=== PATIENT | female | born 1935 | race Caucasian/White ===

== ENCOUNTER 2016-07-20 14:35 | Inpatient (IN) | payer MEDICARE, BC ==
[~2016-07-20] VITALS: Ht 167.6 cm; Wt 111.7 kg
--- NOTE | ~2016-07-20 | ESTC ---
Cardiac Perfusion Imaging Demographics Patient Name OVI Ruvalcaba Gender Female Patient Number [id number] Race Visit Number [id number] [place] [id number] Room Number G6332 Accession Number [id number] Height 66 inches Date of 1935 Weight 236 pounds A Interpreting Manfred De La Rosa Date of study 07/23/2016 Physician MD Supervising /MLP Sigrid BAUMANN Technologist Asher Hyman MD Ordering Physician Stress Cristina Vides architecture technician RDCS, RVT Stress ECG Reading Sigrid Castro Nurse Saul Pompa Physician A air cargo specialist Procedure Type: Nuclear Stress Test:Cardiolite Stress Test Procedure Start time: 07/23/2016 07:32 Indications: Chest pain. Risk Factors The patient risk factors include:obesity, hypercholesterolemia, treated hypertension, family history of premature CAD, insulin treated diabetes mellitus and prior heart failure . Conclusions Summary Perfusion Images: The overall quality of the study is good. Left ventricular cavity is noted to be normal on the stress and normal on the rest images. There is no evidence of abnormal lung activity. The right ventricle is not visualized an cannot be assessed. Impression ECG portion of lexiscan stress test is clinically negative for ischemia by diagnostic criteria. Myocardial perfusion imaging is normal. Apical thinning noted, normal variant. Overall left ventricular systolic function was normal without regional wall motion abnormalities. Calculated LVEF is 71% and TID ratio is 1.2. Stress Protocols Resting ECG RBBB LAHB Interm Weckenbach Resting BP:158/58 mmHg Pre-stress physical exam: Patient assessed by Dr Matta prior to testing. Stress Protocol:Pharmacologic - Lexiscan Peak BP:169/68 mmHg Predicted HR: 142 bpm ECG Findings No ECG changes suggestive of ischemia. Arrhythmias No rhythm abnormality. Symptoms Nausea. Shortness of breath. Stress Interpretation Appropriate hemodynamic response to Lexiscan. No significant ST-T wave changes with Lexiscan. ECG portion is negative for ischemia by diagnostic criteria. Imaging Results Summed scores - Summed stress score: 11 - Summed rest score: 11 - Summed difference score: 0 Stress ejection Ejection fraction:72 % EDV :81 ml ESV :23 ml Stroke volume :58 ml LV mass :114 gr Imaging Protocols Rest Stress Isotope:Tc99m Sestamibi IV Isotope: Tc99m Sestamibi IV Isotope dose:14.2 mCi Isotope dose:44 mCi Date:07/23/2016 07:57 Date:07/23/2016 09:26 Technique: SPECT Technique: Gated Supine SPECT Supine Scan Time:30 minutes post injection Scan Time:45-60 minutes post injection Procedure Medications - Regadenoson (Lexiscan) 0.4 mg IV over 10-15 sec. I.V. 0.4 mg. Medical History Admission Data Admission date: 07/20/2016 Admission Time: 14:35 Hospital Status: Inpatient. Signatures dtt: Cherelle Matta dtd: 07/23/16 0732 Physician Self Edit
--- NOTE | ~2016-07-20 | HP ---
PATIENT'S NAME: CHARO DIOR [facility] AGE: 80 Y [address] ROOM: [address] [place], [place] [address] LOCATION: [facility] ADMIT DATE: 07/20/2016 History & Physical DISCHARGE DATE: FAMILY PHYSICIAN: Kb Littlejohn MD ATTENDING PHYSICIAN: SENA JOHNSON DATE OF SERVICE: CHIEF COMPLAINT: Syncope. HISTORY OF PRESENT ILLNESS: This is a 80-year-old female with history of coronary artery disease, status post multiple stents, last stent placed about 3 years ago; history of type 2 diabetes; previous workup for syncope; also has an ICD placed 3 years ago. The patient today presents from her primary care physician's office for evaluation of syncope. The patient's states that the patient woke up this morning at her usual time and he assisted her to go use the bathroom and while he was waiting for her in the other room for her to finish, she took a little longer than usual and he went back to check on her to find her slouched on the toilet seat leaning against the side of the wall. The patient was unresponsive to him when he tried to interact with her and at that time, tried to help her back into bed, and took next few hours resting in bed. However, few hours later, the patient complained to her that she was having continued palpitations, dizziness, at that point, he decided to bring her for evaluation at her primary care physician. The patient of note has a history of multiple syncopal episodes and extensive workup about 3 years ago, but according to her , she has actually done well in regard to that over the past 2-3 years. Of note, the patient had been on Namenda and Aricept for dementia and did have some orthostatic-type symptoms, and the medicine had to be discontinued as of February 2016. The patient during my evaluation awake, alert, oriented, and resting comfortably. Denies any dizziness, lightheadedness, chest pain, or shortness of breath. The patient also describes having a fall about 3 days ago while attempting to go and get into sleep in the morning, but also explains that she does notice herself having a sensation of passing out for the actual episode actually happens. The patient is noted to have attempted to break her fall as she has scratch hampton on her hands. PAST MEDICAL HISTORY: 1. Coronary artery disease, status post multiple stents. 2. History of recurrent syncope. 3. Status post ICD placement about 3 years ago. 4. Type 2 diabetes. PATIENT'S NAME: CHARO DIOR [facility] AGE: 80 Y [address] ROOM: [address] [place] [address] LOCATION: [facility]PCU ADMIT DATE: 07/20/2016 History & Physical DISCHARGE DATE: FAMILY PHYSICIAN: Kb Littlejohn MD ATTENDING PHYSICIAN: SENA JOHNSON FAMILY HISTORY: The patient has a history of coronary artery disease and hypertension in both her parents. SOCIAL HISTORY: The patient lives in [place] with her . No history of alcohol, tobacco, or drug use. REVIEW OF SYSTEMS: 10-point review of systems was conducted and were all negative except as mentioned in the HPI. PHYSICAL EXAMINATION: VITAL SIGNS: Blood pressure 143/73, heart rate 57, respiratory rate 16, and saturating 98% on room air. GENERAL: The patient is awake, alert, and oriented x3, in no apparent distress. HEENT: The patient has moist mucous membranes. No scleral icterus or conjunctival pallor noted. SKIN: Without rash or lesions noted. HEART: S1, S2, regular rate and rhythm. CHEST: Clear to auscultation bilaterally. ABDOMEN: Soft, nontender, and nondistended with positive bowel sounds. MUSCULOSKELETAL: No joint pain or muscle tenderness noted. NEURO: Grossly nonfocal. ASSESSMENT AND PLAN: 1. Syncope. Rule out cardiac etiology. The patient has an extensive history of coronary artery disease. We will go ahead and do a full cardiac workup and get 12-lead EKG and monitor on tele for rhythm abnormalities. The patient does have an ICD placed and we will interrogate that as well. The patient is known to [facility] and we will invite them for consult and evaluation. 2. Coronary artery disease, status post multiple stents. Last stent about 3 years ago. We will continue the patient's cardiac medications. 3. Type 2 diabetes. We will treat the patient with Levemir 25 units nightly and adjust the dosage as needed on top of the sliding scale insulin. The patient's last A1c per was 7.5. We will recheck that value again. 4. Hypertension. We will check for orthostatic hypotension. The patient is normotensive right now. 5. Deep venous thrombosis prophylaxis. We will use subcutaneous heparin. PATIENT'S NAME: CHARO DIOR [facility] AGE: 80 Y [address] ROOM: [id number] [place] [address] LOCATION: [facility] ADMIT DATE: 07/20/2016 History & Physical DISCHARGE DATE: FAMILY PHYSICIAN: Kb Littlejohn MD ATTENDING PHYSICIAN: SENA JOHNSON MD ALECIA GALLAGHER/modl /[id number] D: [id number] T: [id number] HISTORY & PHYSICAL
--- NOTE | ~2016-07-20 | DS ---
PATIENT'S NAME: CHARO THORNTON [facility] AGE: 80 Y [address] ROOM: [facility] [place], [place] [address] LOCATION: GPCU ADMIT DATE: 07/20/2016 Discharge Summary DISCHARGE DATE: 07/23/2016 FAMILY PHYSICIAN: Kb Littlejohn MD ATTENDING PHYSICIAN: Santosh Taylor PRINCIPAL DISCHARGE DIAGNOSES: Syncope, presumed cardiac etiologies, possibly vasovagal. SECONDARY DIAGNOSES: 1. Hypertrophic obstructive cardiomyopathy. 2. Coronary artery disease with history of coronary artery bypass grafting, multiple percutaneous interventions. 3. Hypertension. 4. Chronic kidney disease, stage III. 5. Diabetes mellitus, type 2 with severe hyperglycemia. 6. Wenckebach rhythm. 7. Morbid obesity. 8. Elevated TSH at 4.92 with a normal T4 at 1.0. 9. Chronic constipation. CONSULTATIONS: Dr. Matthew Matta on 07/21/2016 PROCEDURE: Maria on 07/23/2016. The full report is pending at the time of my discharge summary. Echocardiogram. BRIEF HISTORY: Ms. Thornton is a very norma pleasant 80-year-old female who experienced a syncopal episode while toileting at home. assisted her back to her bed and it took her about 30 minutes to recover. She had some diaphoresis, ringing in her ears. Blood glucose was 202. She did not have any chest pain or dyspnea or any tonic-clonic movements associated with seizure. She had a low blood pressure of 78. She had some recent falls as well. She was seen at Dr. Wen's office and advised to proceed to the ER where she was evaluated and she was admitted for further evaluation and management. Interrogation of her pacer/ICD unit, there was no significant ectopy noted. Echocardiogram, I will give you a brief summary of the results: Estimated left ventricular ejection fraction is 75% [id number] concentric left ventricular hypertrophy, [id number] mitral annular calcification and mild mitral valve stenosis with the mean gradient 1.645. The patient reports to me that she only has a bowel movement about once a week, but more if she uses some multiple laxatives that are on her medication list. She has had no further episodes of near syncope, lightheadedness, and PATIENT'S NAME: CHARO THORNTON [facility] AGE: 80 Y [address] ROOM: [address]32 [place] [address] LOCATION: GPCU ADMIT DATE: 07/20/2016 Discharge Summary DISCHARGE DATE: 07/23/2016 FAMILY PHYSICIAN: Kb Littlejohn MD ATTENDING PHYSICIAN: Chon Taylortrent was found to have blood pressures which revealed she is not orthostatic on 07/21/2016. While she was here, she did have very high glucoses. One reason may be because we switched her to all insulins coverage. I have encouraged her. She was also found to have high triglycerides. I reviewed dietary information with her and reinforced the need for low-carb, low-fat diet with her, when her was present and she may benefit from referral to the in service educator as an outpatient with her . She has had some memory decline and is on Namenda for this. I have recommended review of the side effects with her PCP as she has not seen much benefit. The risks may outweigh the benefits of this medication, given her other multiple comorbidities. Her TSH was mildly elevated at 4.92 with a normal T4. I have not changed her thyroid replacement hormone. This may need further evaluation as well. Discharged the patient and her in their agreement with discharge at this time. INSTRUCTIONS AT DISCHARGE: 1. Diet: Low-carb diabetic diet with low fat, high in veggies. 2. Activity: Increase as tolerated. I am recommending home physical therapy for the assessment of home safety and hopefully help her to increase her exercise intolerance and prevent further falls. 3. Follow up: With Dr. Littlejohn, her PCP in less than a week. Cardiology as previously planned. MEDICATIONS AT THE TIME OF DISCHARGE: 1. Vitamin D 5000 units three times a week. 2. Namenda 10 mg p.o. b.i.d. 3. Aspirin 81 mg p.o. daily. 4. Cymbalta 60 mg at bedtime. 5. Neurontin 400 mg b.i.d., 600 mg at bedtime. 6. NovoLog flex pen 40 units subcu daily and then 45 units b.i.d. 7. Toujeo SoloSTAR 114 units subcu at bedtime. 8. Levothyroxine 125 mcg daily. 9. Mesalamine capsules 400 mg daily. 10. The dose of metoprolol has been changed to 12.5 mg p.o. daily. 11. I have added fish oils 1000 mg caps twice a day. 12. Prilosec 20 mg daily. 13. Ranexa 1000 mg p.o. b.i.d. 14. Rosuvastatin dose has been increased to 40 mg daily because of her high triglycerides. 15. MiraLAX p.r.n. PATIENT'S NAME: CHARO THORNTON [facility] AGE: 80 Y [address] ROOM: [id number] [place] [address] LOCATION: GPCU ADMIT DATE: 07/20/2016 Discharge Summary DISCHARGE DATE: 07/23/2016 FAMILY PHYSICIAN: Kb Littlejohn MD ATTENDING PHYSICIAN: Santosh Taylor 16. Tylenol p.r.n. preparation h p.r.n. 17. Krill oil 500 mg daily. 18. Senna p.o. daily and at bedtime. 19. Brilinta 60 mg b.i.d. 20. Nystatin topical to skin rash. 21. Victoza 1.8 mg subcu at bedtime. 22. Nystatin cream for vaginitis. 23. Diclofenac gel p.r.n. 24. [place] 5/325 p.r.n. 25. Temovate topically b.i.d. p.r.n. I have recommended she stop her vaginal estrogens for cardiovascular reasons, although she may not be able to do this. CONDITION AT DISCHARGE: Good. It is my opinion, this is most likely a vasovagal syncopal episode and she has been pleasant and asymptomatic the entire hospitalization. She is in good condition now. TIME SPENT: Greater than 30 minutes was spent in discharge preparations. Thanks very much for your assistance with this dictation. FESTUS SHEARER MD LM/joni /[id number] d: 07/24/16516 t: 07/24/16 1433, DISCHARGE SUMMARY
--- NOTE | ~2016-07-20 | ECHO ---
Transthoracic Echocardiography Report (TTE) Demographics Patient Name CHARO DIOR Date of Study 07/21/2016 M Patient Number [id number] Visit Number [id number] Date of 1935 Room Number G6332 Gender Female Number Age 80 year(s) Referring [facility] Manager Study Mary Hart, Physician Santosh RT,RVT,RDCS Physician Interpreting Sigrid Castro Refrigeration Engineer Physician A MD Supervising Ordering [facility] Santosh MD/MLP Physician Nurse Stress Tank Cleaning Supervisor Conclusions Contractility Score Summary Normal Left Ventricular contractility was noted. Summary The estimated left ventricular ejection fraction is > 75%. Moderate to severe concentric left ventricular hypertrophy. Normal right atrial size. Device lead seen in the right atrium. Moderate to severe mitral annular calcification. Mild mitral valve stenosis. The mean gradient is 1.64 mmHg. Trivial tricuspid regurgitation by color Doppler. Procedure Type of Study TTE procedure:2D Echocardiogram, M-Mode, Doppler , Color Doppler. Procedure Date Date: 07/21/2016 Start: 07:16 AM Study Location: Inpatient Portable Technical Quality: Adequate visualization Indications:Syncope. Additional Indications:hypotension Appropriate Use Criteria: 9 Patient Status: Routine HR: 65 bpm BP: 152/66 mmHg Allergies - No known allergies. M-Mode/2D Measurements LV Diastolic Dimension: 2.64 cm LV Systolic Dimension: 0.92 cm LV Septum Diastolic: 2.13 cm LV Septum Systolic: 2.35 cm LV PW Diastolic: 2.09 cm LV PW Systolic: 2.6 cm Cardiac Output: 4.82 l/min AO Root Dimension: 3.1 cm LA Dimension: 3.8 cm EF Estimated: 80 % MV EPSS: 0.4 cm LVOT: 2 cm LVOT VTI: 23.6 cm LV Stroke volume: 74.1 ml Doppler Measurements MV Peak E-Wave: 1.2 m/s LVOT Peak Velocity: 1.21 m/s MV Peak A-Wave: 1.65 m/s MV E/A Ratio: 0.73 MV P1/2t: 135 msec E' Septal Velocity: 0.03 m/s MV E/E' Ratio: 21.9 PV Peak Velocity: 1.02 m/s PV Peak Gradient: 4.16 mmHg A' Septal Velocity: 0.08 m/s A' Lateral Velocity: 0.08 m/s Findings Left Ventricle Moderate to severe concentric left ventricular hypertrophy. Diastolic assessment reveals Grade I diastolic dysfunction . Right Ventricle Normal right ventricle structure and function. Left Atrium Normal left atrial size. Right Atrium Normal right atrial size. Device lead seen in the right atrium. Mitral Valve Moderate to severe mitral annular calcification. Mild mitral valve stenosis. The mean gradient is 1.64 mmHg. Aortic Valve Normal aortic valve structure and function. Tricuspid Valve Trivial tricuspid regurgitation by color Doppler. Pulmonic Valve Normal pulmonic valve structure and function. Pericardial Effusion No evidence of pericardial effusion. Miscellaneous Visualized portions of the aortic root and ascending aorta appear normal in size. Pleural Effusion No evidence of pleural effusion. Contractility Score LV regional wall motion:(0-Non visualized 1-Normal 2-Hypokinesis 3-Akinesis 4-Dyskinesis 5-Aneurysm) Signature dtt: Cherelle Matta dtd: 07/21/16 0716 Physician Self Edit
--- NOTE | ~2016-07-20 | CON ---
PATIENT'S NAME: CHARO DIOR [facility] AGE: 80 Y [address] ROOM: [place] [address] LOCATION: GPCU ADMIT DATE: 07/20/2016 Consultation DISCHARGE DATE: FAMILY PHYSICIAN: Kb Littlejohn MD ATTENDING PHYSICIAN: SENA JOHNSON DATE OF CONSULTATION: 07/21/2016 REFERRING PHYSICIAN: Cherelle Matta MD CARDIOLOGY CONSULTATION REASON FOR CARDIOLOGY CONSULTATION: Syncope. HISTORY OF PRESENT ILLNESS: This is a 80-year-old female, who experienced a syncopal episode while on the toilet in her home. Her subsequently had to help her, get off the toilet and states it took about 30 minutes for her to fully recover from her episode. During that time, she was diaphoretic but not having seizures. She also admitted to having some ringing in her ears during the episode. Blood glucose evaluation showed 202, and she denied chest pain, or dyspnea. Of note, though her blood pressure systolically was 78. She also admits to having recent falls over the past three days in her home and had scraped her knee as well as a small hand laceration. After her most recent syncopal episode, she presented to Dr. Wen's office for evaluation and due to the hypotension, plan was made to admit her to [facility] for further treatment and this consult was subsequently requested due to the syncopal episode and her extensive cardiac history including coronary artery bypass grafting, multiple stents, and an ICD implantation in 2013. PAST MEDICAL HISTORY: 1. Coronary artery disease. 2. Diastolic congestive heart failure. 3. Hypertrophic cardiomyopathy. 4. Permanent atrial fibrillation. 5. Hypertension. 6. Dyslipidemia. 7. Diabetes mellitus. 8. GERD. 9. Hypothyroidism. 10. Obstructive sleep apnea. 11. Spinal stenosis. PAST SURGICAL HISTORY: 1. Coronary artery bypass grafting in 2004. PATIENT'S NAME: CHARO DIOR [facility] AGE: 80 Y [address] ROOM: [place] [address] LOCATION: GPCU ADMIT DATE: 07/20/2016 Consultation DISCHARGE DATE: FAMILY PHYSICIAN: Kb Littlejohn MD ATTENDING PHYSICIAN: SENA JOHNSON 2. Single-chamber Bi-V ICD implantation in 2013 due to the permanent atrial fibrillation and hypertrophic cardiomyopathy. 3. Coronary artery stenting with the most recent one being to the proximal LAD in 2013. She also received a stent to her RCA in 2012, and a stent to her saphenous vein graft to the diagonal in 2011, stent to the mid LAD in 2008, and a stent to the mid RCA in 2008. 4. Shoulder surgery. 5. Back surgery. 6. Hysterectomy. 7. Left cataract surgery. 8. Appendectomy. FAMILY HISTORY: The patient's father had a history of heart disease and her mother had a history of diabetes mellitus and cancer of the lung and heart. She has a brother with a history of diabetes and heart disease. SOCIAL HISTORY: The patient denies ever using tobacco. She also denies alcohol or illicit drug use. CURRENT MEDICATIONS: 1. Aspirin 81 mg p.o. daily. 2. Crestor 20 mg p.o. daily. 3. Cymbalta 60 mg p.o. daily in the evening. 4. Delzicol 400 mg p.o. daily at noon. 5. Levothyroxine 125 mcg p.o. daily. 6. Neurontin 400 mg p.o. twice daily at 9:00 a.m. and 6:00 p.m. 7. Neurontin 600 mg p.o. daily at bedtime. 8. Protonix 40 mg p.o. daily. 9. Ranexa ER 1000 mg p.o. twice daily. 10. Toprol-XL 12.5 mg p.o. daily. 11. Heparin 5000 units subcutaneous 3 times daily. 12. Levemir 30 units subcutaneous daily in the evening. 13. NovoLog subcutaneous on a mild sliding scale per a.c. and at bedtime Accu-Cheks. MEDICATION ALLERGIES: No known medication allergies. REVIEW OF SYSTEMS: Pertinent positive review of systems are noted in the HPI. All other review of systems evaluated and negative. PHYSICAL EXAMINATION: PATIENT'S NAME: CHARO DIOR [facility] AGE: 80 Y [address] ROOM: [address] [place] [address] [facility] AD[facility] DATE: 07/20/2016 Consultation DISCHARGE DATE: FAMILY PHYSICIAN: Kb Littlejohn MD ATTENDING PHYSICIAN: SENA JOHNSON VITAL SIGNS: Temperature 97.9, pulse 79, respirations 18, blood pressure 156/68, and O2 saturation 96% on room air. The patient weighs 109.6 kg. SKIN: [place], warm, and dry. EYES: Sclerae clear. No xanthelasmas. ENT: Oral mucosa is pink and moist. No jugular venous distention or carotid bruits. CHEST: Respirations are even and unlabored. Lung sounds are diminished to bilateral bases. HEART: Regular rate and rhythm. Normal S1 and S2. No murmurs, rubs, or gallops. Does have the presence of an S4. ABDOMEN: Obese, but soft and tender. MUSCULOSKELETAL: Equal muscle strength to upper and lower extremities bilaterally against resistance. EXTREMITIES: Peripheral pulses palpable. No clubbing or cyanosis noted. Does have mild edema noted. PSYCHIATRIC: Alert and oriented. Mood and affect are appropriate. IMPRESSION AND PLAN: Per Dr. Matta: 1. Coronary artery disease. 2. Syncope. 3. Hypertension. 4. Diabetes mellitus, type 2. 5. Chronic kidney disease, stage 3. 6. Obesity. Possible vasovagal syncope. Less likely to be arrhythmic, but we will interrogate her ICD for full evaluation of device and recent arrhythmias. We will check some laboratory evaluation with a proBNP, D-dimer, lipids, TSH, and a free T4. We will also get a carotid ultrasound and plan to proceed with a Lexiscan stress test on 07/23/2016 to fully evaluate for myocardial perfusion imaging. There is also question of a possible transient ischemic attack, but we are unable to perform an MRI due to her ICD device. We will continue to monitor, evaluate, and treat as appropriate. Thank you for this consult. Thank you for allowing [facility] to interact in the care of this patient. ZACHARY MCKENNA-MD JOSEPH LAM/joni PATIENT'S NAME: CHARO DIOR [facility] AGE: 80 Y [address] ROOM: [address] [place], [place] [address] LOCATION: [facility] ADMIT DATE: 07/20/2016 Consultation DISCHARGE DATE: FAMILY PHYSICIAN: Kb Littlejohn MD ATTENDING PHYSICIAN: SENA JOHNSON /[id number] d: 07/22/16 1537 t: 07/27/16 1431, CONSULTATION REPORT
[~2016-07-20 14:35] MED LIST: ANUSOL HC 25 M1 SUPP R; ARICEPT10 M1 PO; ASACOL HD800 MG; ASACOL HD800 MG PO; ASPIR 8181 MG PO; ASPIRIN (CHILDR81 MG PO; ASPIRIN LO-DOSE81 MG PO; AZITHROMYCIN500 MG PO; BISACODYL10 MG R; BRILINTA60 MG PO; BRILINTA90 MG PO; CANAGLIFLOZIN; CIPRO500 MG PO; CRESTOR40 MG PO; CYMBALTA60 MG PO; DELZICOL400 M1 PO; DELZICOL400 MG PO; DULCOLAX10 MG R; FIBERCON625 MG; FIBERCON625 MG PO; FISH OIL1000 MG PO; FLEET ENEMA133 ML R; FLEET133 ML R; FLORASTOR250 MG PO; GLUCAGON/GLUCAGE1 MG SUB-Q; GLUCOPHAGE500 MG PO; GLUCOSE4 GM PO; HUMALOG100 UNIT/1 SUB-Q; HUMALOG100 UNIT/3 SUB-Q; INVOKANA100 MG PO; KEPPRA750 MG PO; KRILL OIL500 MG PO; LANTUS100 UNIT/1; LANTUS100 UNIT/1 SUB-Q; LEVEMIR100 UNIT/1 SUB-Q; LEVOTHROID (S100 MCG PO; LEVOTHROID (S125 MCG PO; LIDOCAINE IDER; LOPRESSOR50 M1 PO; LOVENOX40 MG/0.4 SUB-Q; MILK OF MA400 MG/5 M PO; MIRALAX17 GM PO; MYCOSTATIN CREA30 GM TOP; NAMENDA10 MG PO; NAMENDA5 MG PO; NEURONTIN400 MG PO; NEURONTIN600 MG PO; NORCO 5-325 TA1 EACH PO; NORPACE CR150 MG PO; NOVOLOG FL100 UNIT/1 SUB-Q; NOVOLOG SUB-Q; NOVOLOG100 UNIT/M SUB-Q; NYSTATIN1 EAC1 TOP; OMEGA 3 1,0001 EACH PO; OMEGA 3 PO; OMEGA-3; OMEGA-31000 MG PO; PANTOPRAZOLE SO40 MG PO; PREMARIN0.3 MG PO; PREPARATION H O57 GM R; PREPARATION H26 GM TOP; PRILOSEC20 M1 PO; PRILOSEC20 MG; PRILOSEC20 MG PO; RANEXA1000 MG PO; SENEXON-S TABL1 EACH PO; SENNA PO; SENNA-S TABLET1 EACH PO; SENNA8.6 MG PO; TOPROL XL25 MG PO; TOPROL XL50 MG PO; TOUJEO SOL300 UNIT/1 SUB-Q; TYLENOL ARTHRI650 MG PO; TYLENOL325 MG PO; VICTOZA 2-0.6 MG/0.1 SUB-Q; VICTOZA 3-0.6 MG/0.1 SUB-Q; VICTOZA SUB-Q; VITAMIN D5000 UNIT; VITAMIN D5000 UNIT PO; VOLTAREN 1% GE100 GM TOP
[2016-07-20] MEDS ORDERED: TEMOVATE60 GM TOP (15:36)
[2016-07-20] MEDS ORDERED: PREMARIN VAG30 GM TOP (15:37)
--- NOTE | 2016-07-20 16:55 | NUR ---
1500 PT ADMITTED TO [address] MAZA. AT TIME OF ADMIT PT IS ALERT, ALITTLE FORGETFUL AND LOOKS TO FOR ALOT OF HER DATA BASE ANSWERS. 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 PT COMES UP IN A WHEEL CHAIR FROM ADMISSIONS, AND SAYS SHE USES A WALKER AT HOME OR FOR LONGER DISTANCES. AT HOME SHE USES THE FURNITURE TO GET AROUND. LUNGS ARE CLEAR AND DIMINISHED WITH CRACKLES IN THE BASES. ABDOMEN IS SOFT AND ROUND WITH HYPOACTIVE BOWEL SOUNDS. PULSES ARE PALPABLE SHE HAS NO EDEMA. SHE DENIES DIZZINESS OR LIGHTHEADEDNESS AT THIS TIME, AND SAYS SHE ONLY FELT LIKE THAT THIS AM WHEN SHE WAS AT HOME. SL IV 22 GA STARTED TO LT HAND. AT BEDSIDE. 1700 IN TO SEE PT. ORDERS RECIEVED
[2016-07-20 18:54] LABS: BASOPHIL % 0.3 %; EOSINOPHIL # 0.2 K/uL (0.0-0.5); EOSINOPHIL % 1.4 %; HEMATOCRIT 40.4 % (33.0-46.0); HEMOGLOBIN 13.3 g/dL (10.0-15.0); IMMATURE GRANULOCYTE # 0.1 K/uL (0.0-0.3); IMMATURE GRANULOCYTE % 0.5 %; LYMPHOCYTE % 18.1 %; MCH 31.8 pg (27.0-34.0); MCHC 32.9 gm/dL (32.0-36.5); MCV 96.7 fl (83.0-98.0); MONOCYTE # 0.9 K/uL (0.0-1.0); MONOCYTE % 8.6 %; NEUTROPHIL # (ANC) 7.7 K/uL (1.8-7.8); NEUTROPHIL % 71.1 %; NRBC % 0 /100WBC (0-0.00); PLATELET COUNT 237 K/uL (150-450); RBC 4.18 M/uL (3.50-5.50); RDW-CV 13.8 % (11.9-14.6); WBC 10.9 K/uL (4.0-11.0)
[2016-07-20 19:12] LABS: ALBUMIN 3.5 gm/dL (3.5-5.0); ANION GAP 10.4 (10.0-19.0); BLOOD UREA NITROGEN 23 mg/dL (6-24); CALCIUM 9.8 mg/dL (8.5-10.5); CHLORIDE 106 mMol/L (96-110); CO2 28 mMol/L (22-32); CREATININE 1.3 mg/dL (0.5-1.1); ESTIMATED GFR (MDRD EQUATION) 40; MAGNESIUM 2.1 mg/dL (1.3-2.6); PHOSPHORUS 2.5 mg/dL (2.5-4.9); POTASSIUM 4.4 mMol/L (3.7-5.1); SODIUM 140 mMol/L (135-145)
--- NOTE | 2016-07-21 04:19 | NUR ---
NEURO: A/O x 3. Often defers questions to , who is caregiver at home. Chronic n/t to fingers and toes. CARDIO: Tele. AICD. Need set of orthostatic BPs. RESP: Upper 90's on RA. GI/: Diabetic. Accuchekcs ACHS. At HS was 240. IV: left hand SL. ACTIVITY: 1 assist with gaitbelt to BSC. MD does not want patient walking to bathroom at thsi time. Unsteady. PAIN: No c/o pain this shift. PLAN: Continue to monitor. Discharge when appropriate.
--- NOTE | 2016-07-21 12:27 | NUR ---
Introduced self and care management services to patient. Lives in [place] with spouse. No family in room. Denies concerns about going home on discharge, says her spouse takes good care of her. Denies needs. Asked her if she would like [facility] to follow her again at home on discharge, like they did last time she was in and she said she didn't think it would be needed but would talk to her about it. Did put a face 2 face sheet on the chart in case physician decides to order it. Will follow and assist with dc planning as needs identified.
--- NOTE | 2016-07-21 17:07 | NUR ---
Significant Event: Patient A/O x3. VS stable, on RA. Patient up to chair this shift. 1 assist gaitbelt walker transfer. Up to bedside commode to void. Patient able to move well, but unsteady at times. Patient has chronic N/T to toes. Patient on ACHS accuchecks, with mild sliding scale insulin treated x3 this shift. PT/OT consult. Patient denies pain at this time. Patient pleasant and cooperative with cares. supportive at bedside. Follow up:
--- NOTE | 2016-07-22 04:38 | NUR ---
NEURO: A&O x3. Pleasant with cares. CARDIO: Tele. Cardio consult. Kendy scan on 07/23. RESP: Upper 90's on RA. GI/: No caffiene diet. No nausea. Voids per BSC. Accuchecks ACHS. Levemir. SKIN: WNL. ACTIVITY: 1 assist with gait belt and walker to BSC. PT/OT consults. PAIN: No c/o pain this shift. PLAN: Discharge when appropriate.
--- NOTE | 2016-07-22 14:50 | NUR ---
Significant Event: A/O X 3. AT BEDSIDE. DENIES PAIN. HR SR 60-70'S. PACEMAKER INTERAGATED BY [employer] TODAY. NO ARRHYTHMIAS NOTED. DENIES DIZZYNESS. UP IN CHAIR TODAY AND AMBULTED IN ROOM. AFEBRILE. SBP 140-150'S. ROOM AIR, SATS 96%. NO RESP. DISTRESS NOTED. Follow up: CONT. CAFFIENE FREE DIET FOR LEXISCAN IN A.M.
[2016-07-23 03:58] LABS: ALBUMIN 3.1 gm/dL (3.5-5.0); ANION GAP 12.7 (10.0-19.0); CALCIUM 9.6 mg/dL (8.5-10.5); CREATININE 1.1 mg/dL (0.5-1.1); PHOSPHORUS 2.8 mg/dL (2.5-4.9); POTASSIUM 4.7 mMol/L (3.7-5.1)
--- NOTE | 2016-07-23 05:09 | NUR ---
A/O. HR 60-70s. SBP 140-160s. AFEBRILE. ROOM AIR. DENIES DIZZYNESS/LIGHTHEADEDNESS. DENIES PAIN. 1A WALKER GAITBELT TO COMMODE. NPO SINCE MIDNIGHT FOR EDMOND SCAN THIS AM. WILL BRING 60MG TABLETS OF BRILINTA TODAY. 1 MODERATE FORMED BM.
[2016-07-23] MEDS ORDERED: FISH OIL 1,0001 EAC1 PO (16:38)
--- NOTE | 2016-07-23 18:35 | NUR ---
DISM. NOTE: 174: REVIEW OF HOME MEDS AND NEW MEDS WITH HANDOUT AND INSTRUCTED ON DOSAGE CHANGES WELL. PRESCRIPTION GIVEN FOR PHARMACY FOR MED CHANGES. DIET/ ACTIVITY FOLLOW UP APPT. PATIENT DIDN'T REALLY WANT PT TO COME TO HER HOME YET. WILL DISCUSS WITH HER PRIMARY CARE PHYSICIAN WHEN SHE SEE'S HIM AT FOLLOW UP APPT. PATIENT AND VOICED UNDERSTANDING.
[2016-08-03] MEDS ORDERED: NITROSTAT0.4 MG SL (13:18)
[2016-08-03] MEDS ORDERED: PREPARATION H C51 G1 TOP (13:23)
[2016-08-03] MEDS ORDERED: VAGIFEM10 MCG VAG (13:28)
== END 2016-07-23 17:45 | disposition disaster alternative care site (69) | DRG 312 ==
LOC: GPCU 14:35
PROVIDERS: ADMIT Internal Medicine
DX: R55 Syncope and collapse (principal); I42.1 Obstructive hypertrophic cardiomyopathy; F03.90 Unspecified dementia, unspecified severity, without behavioral disturbance, psychotic disturbance, mood disturbance, and anxiety; I50.32 Chronic diastolic (congestive) heart failure; E11.22 Type 2 diabetes mellitus with diabetic chronic kidney disease; E66.01 Morbid (severe) obesity due to excess calories; I25.10 Atherosclerotic heart disease of native coronary artery without angina pectoris; Z95.5 Presence of coronary angioplasty implant and graft; Z95.810 Presence of automatic (implantable) cardiac defibrillator; I48.2 Chronic atrial fibrillation; E78.5 Hyperlipidemia, unspecified; K21.9 Gastro-esophageal reflux disease without esophagitis; E03.9 Hypothyroidism, unspecified; G47.33 Obstructive sleep apnea (adult) (pediatric); Z79.82 Long term (current) use of aspirin; Z79.4 Long term (current) use of insulin; I12.9 Hypertensive chronic kidney disease with stage 1 through stage 4 chronic kidney disease, or unspecified chronic kidney disease; N18.3 Chronic kidney disease, stage 3 (moderate); Z68.38 Body mass index [BMI] 38.0-38.9, adult; Z23 Encounter for immunization; E11.65 Type 2 diabetes mellitus with hyperglycemia; K59.00 Constipation, unspecified; I44.1 Atrioventricular block, second degree
CPT/HCPCS: A9500; G0008; J1644; J2785; P9047

== ENCOUNTER → 2016-08-03 | Outpatient (CLI) | payer MEDICARE, BC ==
[~2016-08-03] MED LIST changes: +FISH OIL 1,0001 EAC1 PO; +NITROSTAT0.4 MG SL; +PREMARIN VAG30 GM TOP; +PREPARATION H C51 G1 TOP; +TEMOVATE60 GM TOP; +VAGIFEM10 MCG VAG
== END | disposition disaster alternative care site (69) ==
LOC: GNUT 07-28 09:59
DX: E11.8 Type 2 diabetes mellitus with unspecified complications (principal); Z71.3 Dietary counseling and surveillance

== ENCOUNTER 2016-08-04 08:05 | Day surgery (SDC) | payer MEDICARE, BC ==
[~2016-08-04] VITALS: Ht 167.6 cm; Wt 109.5 kg
--- NOTE | ~2016-08-04 | OR ---
PATIENT'S NAME: CHARO THORNTON [facility] AGE: 80 Y [address] ROOM: [place] [address] LOCATION: GPCU ADMIT DATE: 08/04/2016 OR/Procedure Report DISCHARGE DATE: FAMILY PHYSICIAN: Kb Littlejohn MD ATTENDING PHYSICIAN: Ovidio Salinas SURGEON: Ovidio Salinas DO SPECIAL EDUCATION INCLUSION TEACHER: DATE OF PROCEDURE: 08/04/2016 PREOPERATIVE DIAGNOSIS: Third-degree heart block. SECONDARY DIAGNOSIS: History of single-chamber implantable cardioverter- defibrillator. PROCEDURE PERFORMED: Placement of atrial lead and upgrade of implantable cardioverter-defibrillator to dual-chamber. BRIEF HISTORY: Mrs. Thornton is a 80-year-old white female with the above- noted diagnosis. She has been brought to the operative suite today after informed consent was obtained for upgrade of her device. DESCRIPTION OF PROCEDURE: Her previous incision was marked. The anterior chest wall was sterilely prepped and draped, and after appropriate IV sedation was achieved, 1% lidocaine was used to infiltrate the previous incision. The incision was opened, and electrocautery was used for hemostasis. The lead and generator were removed from the pocket. Further infiltration of 1% lidocaine was used for the infraclavicular space, and then the subclavian vein was accessed without difficulty and a guidewire placed under fluoroscopic guidance into the right atrium. Sheath and dilator assembly were then placed, and the atrial lead was placed. It was a [employer] Ingevity MRI lead, model 7741, serial #[id number], placed in the right atrial appendage, sensing P waves of 2.6 mV with a voltage threshold of 0.9 and a pacing impedance of 636 ohms. It was then connected to the new generator which was a [employer] Energen EL, model D142, serial #[id number]. The old generator was then disconnected from the ventricular lead, and the ventricular leads placed into the new generator. Appropriate sensing and pacing was noted. The patient was paced DDDR with a lower rate limit of 60 and maximum tracking limit of 120. The incision was closed in a layered fashion with 2-0 Vicryl and 4-0 Monocryl. Pressure dressing was applied. Fluoroscopy showed good lead and generator position. OVIDIO SALINAS DO PATIENT'S NAME: CHARO THORNTON [place] AGE: 80 Y [address] ROOM: [place] [address] [facility] AD[facility] DATE: 08/04/2016 OR/Procedure Report DISCHARGE DATE: FAMILY PHYSICIAN: Kb Littlejohn MD ATTENDING PHYSICIAN: Ovidio Salinas/tyeshal /[id number] CC: Kb Littlejohn MD d: 08/04/16 1340 t: 08/04/16 1411, OPERATIVE SUMMARY
[2016-08-04 09:36] LABS: PROTIME 9.9 SECONDS (9.6-11.1)
--- NOTE | 2016-08-04 12:30 | NUR ---
Patient brought to PCU from PACU by transport. Alert/oriented x 3, but forgetful, asks repetitive questions. Saline lock to left forearm. Sling to left arm. Dressing to left upper chest clean/dry/intact; ice pack to left chest. Denies pain. 1 assist with gait belt for ambulation to the bathroom, unsteady on feet. Initial vitals: BP 144/67, HR 61, R 16, T 97.4, O2 SATS 98% ON ROOM AIR. DUAL PACED.
--- NOTE | 2016-08-05 05:08 | NUR ---
Significant Event: pATIENT ALERT AND ORIENTED X 3. DENIES PAIN. DENIES SHORTNESS OF BREATH. PATIENT VERY MINDFULL OF PRECAUTIONS REQUIRED FOR PACER LINE REVISION. FOLLOWS DIRECTIONS WELL. PATIENT DENIED PAIN AND SHORTNESS OF BREATH. TOLERATED IV ABX WITHOUT ISSUE. Follow up: CONTINUE TO MONITOR PER POC
== END 2016-08-05 12:40 | disposition disaster alternative care site (69) ==
LOC: GPCU 08:05 → GSDC 08:05 → GPCU 11:06 → GSDC 13:00
PROVIDERS: Thoracic Surgery (Cardiothoracic Vascular Surgery)
PROC: 0JPT0PZ Removal of Cardiac Rhythm Related Device from Trunk Subcutaneous Tissue and Fascia, Open Approach (ICD-10-PCS; principal; 2016-08-04)
PROC: 0JH608Z Insertion of Defibrillator Generator into Chest Subcutaneous Tissue and Fascia, Open Approach (ICD-10-PCS; 2016-08-04)
DX: I44.2 Atrioventricular block, complete (principal); I25.810 Atherosclerosis of coronary artery bypass graft(s) without angina pectoris; I25.82 Chronic total occlusion of coronary artery; I48.91 Unspecified atrial fibrillation; I11.0 Hypertensive heart disease with heart failure; I50.9 Heart failure, unspecified; I42.2 Other hypertrophic cardiomyopathy; E11.9 Type 2 diabetes mellitus without complications; E78.5 Hyperlipidemia, unspecified; G47.33 Obstructive sleep apnea (adult) (pediatric); F32.9 Major depressive disorder, single episode, unspecified; M79.7 Fibromyalgia; K21.9 Gastro-esophageal reflux disease without esophagitis; E03.9 Hypothyroidism, unspecified; E66.9 Obesity, unspecified; Z68.37 Body mass index [BMI] 37.0-37.9, adult; Z79.891 Long term (current) use of opiate analgesic; Z79.82 Long term (current) use of aspirin; Z79.4 Long term (current) use of insulin; Z95.1 Presence of aortocoronary bypass graft; Z95.5 Presence of coronary angioplasty implant and graft
CPT/HCPCS: C1721; C1898; J0131; J0690; J2001; J2250; J7030; J7050

== ENCOUNTER 2016-10-31 13:41 | Observation (INO) | payer MEDICARE, BC ==
[~2016-10-31] VITALS: Ht 167.6 cm; Wt 110.5 kg
--- NOTE | ~2016-10-31 | NDGEN ---
PATIENT'S NAME: CHARO DIOR [facility] AGE: 81 Y [address] ROOM: [place] [address] [facility] AD[facility] DATE: 10/31/2016 Neurodiagnostics DISCHARGE DATE: FAMILY PHYSICIAN: Kb Littlejohn MD ATTENDING PHYSICIAN: Rosa GLORIA PROCEDURE: ELECTROENCEPHALOGRAM DATE OF PROCEDURE: 11/01/2016 TIME: The patient had this EEG done on 11/01/2016 at 10:35 a.m. FINDINGS: This EEG was done on this 81-year-old female, who has a known history of some dementia. The rule out here was seizure versus syncope. The general background rhythm was showing normal amplitudes between 30 to 60 microvolts and remained stable throughout the whole recording. Also, the background rhythm remained stable and symmetric in all leads showing cycling of between 8 to 11 Hz alpha rhythm. Occasionally opening of the eyes and closing of the eyes obscured the background rhythm. Photic stimulation produced a proper photic drive response to increase the background amplitudes. No time, was there any epileptiform features seen and no seizures were recorded. IMPRESSION: Normal EEG for age. MD PRATEEK CASTANON/joni /[id number] dtt: 11/22/16 0820 , SHAUN ECHEVARRIA dtd: 11/01/16 1648
--- NOTE | ~2016-10-31 | DS ---
PATIENT'S NAME: CHARO DIOR [facility] AGE: 81 Y [address] ROOM: [place] [address] LOCATION: GPCU ADMIT DATE: 10/31/2016 Discharge Summary DISCHARGE DATE: 11/02/2016 FAMILY PHYSICIAN: Kb Littlejohn MD ATTENDING PHYSICIAN: Rosa GLORIA PRIMARY DIAGNOSES: 1. Syncope, vasovagal. 2. Deconditioning. 3. Hypertrophic obstructive cardiomyopathy. 4. Paroxysmal atrial fibrillation. 5. Coronary artery disease. 6. Diabetes mellitus type 2. 7. Essential hypertension. 8. Hypothyroidism. 9. Morbid obesity. 10. Depression. 11. Dementia without agitation. 12. Acute kidney injury, prerenal. OPERATIONS AND PROCEDURES: CT scan of the brain performed on 10/31/2016 was negative for any acute intracranial process. HISTORY OF PRESENTING ILLNESS/REASON FOR ADMISSION: Please refer to the H and P dictated on 10/31/2016. HOSPITAL COURSE: The patient was admitted to the hospital as noted above with a presumptive diagnosis of syncope. Historical features of the incident were difficult to define. She experienced the episode while sitting at the lunch table, but was not clear if she actually syncopized. She was hemodynamically stable over the course of her hospital stay here. She was seen and evaluated by both Neurology and Cardiology. She did have pacemaker interrogation, and this revealed only a single episode of atrial tachycardia, but no significant cardiac arrhythmias. She did not have any events during her hospital stay here. She was seen and evaluated by Neurology. It was felt that the symptoms were not neurological in origin nor distinctly cardiac. Rather it was felt this was probably dysautonomia or vasovagal episode related to poor hydration and significant deconditioning. By the end of the third day of her hospital stay, it was felt she would be stable enough for discharge home. Plan is to resume an outpatient exercise regimen and close clinical followup with primary care provider. PATIENT'S NAME: CHARO DIOR [facility] AGE: 81 Y [address] ROOM: [place] [address] LOCATION: GPCU ADMIT DATE: 10/31/2016 Discharge Summary DISCHARGE DATE: 11/02/2016 FAMILY PHYSICIAN: Kb Littlejohn MD ATTENDING PHYSICIAN: Rosa GLORIA DISCHARGE INSTRUCTIONS: Diet: 1800-calorie per day as tolerated. Activity: As tolerated. MEDICATIONS: 1. Aspirin 81 mg p.o. daily. 2. Vitamin D3 of 5000 units p.o. 4 days a week. 3. Namenda 10 mg p.o. b.i.d. 4. Voltaren gel apply topically at bedtime. 5. Cymbalta 60 mg p.o. at bedtime. 6. Gabapentin 400 mg p.o. b.i.d. and 600 mg p.o. at bedtime. 7. Insulin NovoLog 30 to 40 units subcu q.a.c. based on sliding scale and Toujeo 114 units subcu at bedtime. 8. Levothyroxine 125 mcg p.o. daily. 9. Metoprolol 25 mg p.o. daily. 10. Omeprazole 20 mg p.o. daily. 11. MiraLax 17 g p.o. daily p.r.n. 12. Senna 3 tabs p.o. at bedtime. 13. Ranexa 1000 mg p.o. b.i.d. 14. Crestor 20 mg p.o. at bedtime. 15. Acetaminophen 650 mg p.o. q.4 hours p.r.n. pain or fever. 16. Mesalamine 400 mg p.o. daily. 17. Krill oil 500 mg p.o. daily. 18. Brilinta 60 mg p.o. b.i.d. 19. Victoza 1.8 mg subcu at bedtime. 20. Nitroglycerin 0.4 mg sublingually q.5 minutes p.r.n. chest pain. FOLLOWUP: She will follow up Dr. Littlejohn in 5 to 7. CONDITION ON DISCHARGE: Fair. TOTAL TIME SPENT ON DISCHARGE PROCESS: 45 minutes. MD MICHELLE GOMEZ/joni /[id number] d: 11/03/16 0352 t: 11/13/16 2359, DISCHARGE SUMMARY
--- NOTE | ~2016-10-31 | HP ---
PATIENT'S NAME: CHARO DIOR [facility] AGE: 81 Y [address] ROOM: [place] [address] LOCATION: GPCU ADMIT DATE: 10/31/2016 History & Physical DISCHARGE DATE: FAMILY PHYSICIAN: Kb Littlejohn MD ATTENDING PHYSICIAN: Rosa GLORIA DATE OF SERVICE: CHIEF COMPLAINT: Syncope. HISTORY OF PRESENT ILLNESS: The patient is a 81-year-old female with past medical history of CAD, status post CABG and multiple PCI; diabetes mellitus type 2; hypothyroidism; diabetic neuropathy; and history of syncope, who presents here with syncope. The patient does not remember much of the event. Most of the history was gathered from her . The patient was noted to be unresponsive soon after she ate her lunch. reports that he tried to wake her up, but could not be responsive. He tried to stand her up and take her to her bed. The patient was noted to be weak and unresponsive. EMS was called. Initially, security police was present on the house and was mildly responsive to painful stimuli. The patient was brought in to our emergency department and was noted to have some improvement of her symptoms, currently with resolvement of symptoms. Blood glucose was 208 during this event. The patient reports that she does not remember the events that occurred and also denies any palpitation, chest pain, shortness of breath, pain, visual disturbance, headache, vision change, urinary and bowel incontinence, and tongue biting. The patient has had history of falls and history of syncope in the past and was recently admitted in July 2016 and has had extensive workup including echo, CT, CT head, and stress test and also carotid duplex which was unremarkable. MEDICAL HISTORY: 1. CAD, status post CABG and multiple stents. 2. Diabetes mellitus type 2. 3. History of syncope. 4. Hypothyroidism. SURGICAL HISTORY: 1. CABG. 2. ICD placement. FAMILY HISTORY: Father had heart disease and also brother heart coronary artery disease. SOCIAL HISTORY: PATIENT'S NAME: CHARO DIOR [facility] AGE: 81 Y [address] ROOM: [place] [address] LOCATION: GPCU ADMIT DATE: 10/31/2016 History & Physical DISCHARGE DATE: FAMILY PHYSICIAN: Kb Littlejohn MD ATTENDING PHYSICIAN: Rosa GLORIA Denies smoking, denies drinking, and lives with her . MEDICATIONS: Currently being reconciled. REVIEW OF SYSTEMS: All systems have been reviewed and are negative except for what I mentioned in the HPI. PHYSICAL EXAMINATION: VITAL SIGNS: Temperature 97, heart rate 66, blood pressure 111/63, respiratory rate of 20, saturating 97% on 2 L. GENERAL APPEARANCE: The patient is alert and awake. No acute distress. HEAD: Normocephalic, atraumatic. EYES: Extraocular muscle intact. Sclerae nonicteric. NOSE: No nasal discharge. EARS: No ear discharge. ORAL CAVITY: Moist oral cavity. CHEST: Clear to auscultation bilaterally. HEART: Regular rate and rhythm. No murmurs, rubs, gallops heard. ABDOMEN: Soft, nontender, and nondistended. Bowel sounds present. EXTREMITIES: Trace edema. SKIN: Warm to touch. MUSCULOSKELETAL: Range of motion intact. COATING MIXER: Alert and oriented x3. Motor and sensory grossly intact. LABORATORY DATA: Troponin x1 negative. D-dimer within normal limits of 0.43. Creatinine 1.4, BUN 18, sodium 139, potassium 4.6, CO2 of 23. White blood cell count of 8.9, hemoglobin 13.3, platelets 207. CT head shows mild stable prominence of ventricles and mild periventricular small vessel ischemic changes. No acute cortical ischemia or hemorrhage. EKG shows vent-based heart rate of 68. Chest x-ray shows no acute process. ASSESSMENT AND PLAN: 1. Syncope. The patient is a 81-year-old female with history of syncope, coronary artery disease, atrial fibrillation, and hypertrophic cardiomyopathy with ICD placement and diabetes mellitus type 2, who presents here with syncope. Etiology syncope versus seizure. The patient was recently admitted and has had extensive workup, including PATIENT'S NAME: CHARO DIOR [facility] AGE: 81 Y [address] ROOM: [place] [address] [facility] AD[facility] DATE: 10/31/2016 History & Physical DISCHARGE DATE: FAMILY PHYSICIAN: Kb Littlejohn MD ATTENDING PHYSICIAN: Rosa GLORIA stress test, carotid Doppler, echo, and CT head which was unremarkable. There was suspicion for diabetic autonomic dysfunction and vasovagal. However, these symptoms occurred when the patient was still sitting without any orthostatic change. Orthostatic on bedside normal. We will acquire EEG and also consult Neurology for possible seizure disorder. Also, consult Cardiology for cardiac etiology and also for interrogation of ICD during this event. The patient to be seen by PT/OT. We will acquire EEG and also acquire Neurology consult. 2. Diabetes mellitus, type 2. No event of hypoglycemia recently. We will continue home medication. However, the patient takes Toujeo. We will change it to Detemir. We will have 100 units q.h.s. and start the patient on NovoLog 15 units with meals with sliding scale. 3. Acute kidney injury. The patient has creatinine of 1.4, baseline is 1.1. I suspect this might be prerenal. We will start the patient on gentle IV fluid hydration and acquire lab daily. 4. Coronary artery disease, status post coronary artery bypass grafting and multiple percutaneous coronary interventions. We will continue Crestor, beta-sam, Brilinta, and aspirin. The patient denies chest pain. Troponin x1 negative. EKG with no significant ischemic changes. 5. Hypothyroidism. Continue Synthroid supplement. 6. Diabetic neuropathy. Continue gabapentin. 7. History of hypertrophic cardiomyopathy and atrial fibrillation, status post ICD placement. The patient currently not on anticoagulation and is on Brilinta and aspirin. Anticoagulation not started or continued due to history of multiple falls. 8. Obesity, ongoing problem. 9. Physical deconditioning. PT/OT. The patient currently uses a walker to ambulate. Greater than 60 minutes was spent on patient care, 50% of time was spend on direct patient care and consultation. We will admit the patient for observation. Case was discussed with Cardiology and Neurology. Code status on admission: Full code. MD LEANDRO HUERTA/joni /[id number] D: [id number] T: [id number] HISTORY & PHYSICAL
--- NOTE | ~2016-10-31 | CON ---
PATIENT'S NAME: CHARO DIOR [facility] AGE: 81 Y [address] ROOM: [place] [address] LOCATION: GPCU ADMIT DATE: 10/31/2016 Consultation DISCHARGE DATE: FAMILY PHYSICIAN: Kb Littlejohn MD ATTENDING PHYSICIAN: Rosa GLORIA REFERRING PHYSICIAN: Cherelle Matta MD REASON FOR CONSULT: Loss of consciousness. HISTORY OF PRESENT ILLNESS: This is a 81-year-old female, who had an episode of [id number] loss of consciousness after finishing her lunch. This episode was witnessed by her and the police and EMS were notified and presented to her home. No notation of any ICD activation during this episode. states she did have some arm jerking movements during this episode, but no tongue biting or incontinence noted. She denies any chest pain, shortness of breath, palpitations, or nausea or vomiting prior to the event. At the time of this consult, she is resting comfortably in bed. PAST MEDICAL HISTORY: 1. Coronary artery disease. 2. Chronic diastolic congestive heart failure. 3. Hypertrophic obstructive cardiomyopathy. 4. Paroxysmal atrial fibrillation. 5. Hypertension. 6. Dyslipidemia. 7. Diabetes mellitus. 8. GERD. 9. Hypothyroidism. 10. Obstructive sleep apnea. 11. Spinal stenosis. PAST SURGICAL HISTORY: 1. Coronary artery bypass grafting in 2003. 2. Single-chamber BiV ICD implantation in 2013. 3. Atrial lead implantation from her ICD in July of 2016. 4. Coronary artery stenting with her most recent stent to the proximal LAD in 2013. She also has received stents to her RCA in 2012, stent to her saphenous vein graft to the diagonal in 2011, stent to the mid LAD in 2008, and stent to the mid RCA in 2008. 5. Shoulder surgery. 6. Back surgery. 7. Hysterectomy. 8. Left cataract surgery. 9. Appendectomy. PATIENT'S NAME: CHARO DIOR [facility] AGE: 81 Y [address] ROOM: [place] [address] LOCATION: GPCU ADMIT DATE: 10/31/2016 Consultation DISCHARGE DATE: FAMILY PHYSICIAN: Kb Littlejohn MD ATTENDING PHYSICIAN: Rosa GLORIA FAMILY HISTORY: The patient's father had a history of heart disease and her mother had a history of diabetes mellitus and cancer of the lung and heart. She has a brother with a history of diabetes and heart disease. SOCIAL HISTORY: The patient denies ever using tobacco. She also denies alcohol or illicit drug use. CURRENT MEDICATIONS: 1. Aspirin 81 mg p.o. daily. 2. Crestor 40 mg p.o. daily. 3. Cymbalta 60 mg p.o. daily. 4. Synthroid 125 mcg p.o. daily. 5. MiraLAX 17 g p.o. daily. 6. Namenda 10 mg p.o. twice daily. 7. Neurontin 600 mg p.o. daily in the evening. 8. Neurontin 400 mg p.o. twice daily. 9. Brilinta 60 mg p.o. twice daily. 10. Protonix 40 mg p.o. daily. 11. Ranexa 1000 mg p.o. twice daily. 12. Senokot 3 tabs p.o. daily in the evening. 13. Toprol-XL 12.5 mg p.o. daily. 14. Vitamin D 5000 units p.o. on Sunday, Sunday, Sunday, and Sunday. 15. Heparin 5000 units subcu 3 times daily. 16. Levemir 100 units subcu daily in the evening. 17. NovoLog 15 units subcu with meals. 18. NovoLog subcu on a mild sliding scale per a.c. and h.s. Accu-Cheks. 19. Voltaren 1% gel topically in the evening. MEDICATION ALLERGIES: No known medication allergies. REVIEW OF SYSTEMS: Pertinent positive review of systems listed in the HPI. All other review of systems evaluated and negative. PHYSICAL EXAMINATION: VITAL SIGNS: Temperature 97.5, pulse 76, respirations 18, blood pressure 152/67, and O2 saturation 92% on room air, and the patient weighs 110.5 kg. SKIN: [place], warm, and dry. EYES: Sclerae are clear. No xanthelasma. ENT: Oral mucosa is pink and moist. No jugular venous distention. No carotid bruits. CHEST: Respirations are even and unlabored. PATIENT'S NAME: CHARO DIOR [facility] AGE: 81 Y [address] ROOM: [facility] [place], [place] [address] [facility] DATE: 10/31/2016 Consultation DISCHARGE DATE: FAMILY PHYSICIAN: Kb Littlejohn MD ATTENDING PHYSICIAN: Rosa GLORIA LUNGS: Clear to auscultation. HEART: Regular rate and rhythm. Normal S1, S2. No murmurs, rubs, or gallops. ABDOMEN: Soft, nontender. MUSCULOSKELETAL: Equal muscle strength in upper and lower extremities bilaterally against resistance. EXTREMITIES: Peripheral pulses are palpable. No clubbing, cyanosis, or edema. PSYCHIATRIC: Alert and oriented. Mood and affect are appropriate. IMPRESSION: Per Dr. Matta. 1. Loss of consciousness. 2. History of syncope with ICD implantation. 3. Coronary artery disease history without complaints of angina at this time. 4. History of hypertrophic obstructive cardiomyopathy. 5. Paroxysmal atrial fibrillation with high risk for anticoagulation. 6. Diabetes mellitus type 2. 7. Hypertension. 8. Obesity. PLAN: We will start by interrogating the patient's ICD to fully evaluate for arrhythmias or ICD shock during this event. We will continue to monitor, evaluate, and treat as appropriate. We will need to rule out MN and perform a neuro consultation per the Hospitalist Service. Thank you for this consult. Thank you for allowing [facility] to interact in the care of this patient. MARVIN SAUNDERS APRN FOR IRLANDA-MD HERNANDEZ/modl /[id number] d: 11/01/16 0839 t: 11/06/16 0434, CONSULTATION REPORT
--- NOTE | ~2016-10-31 | ER ---
PATIENT'S NAME: [facility] AGE: 81 Y [address] ROOM: [place] [address] LOCATION: GPCU ADMIT DATE: 10/31/2016 ER/Outpatient Report DISCHARGE DATE: FAMILY PHYSICIAN: Kb Littlejohn MD ATTENDING PHYSICIAN: Rosa CORBETT TIME OF ARRIVAL: 13:40. TIME SEEN: 13:40. IDENTIFICATION: A 81-year-old female. CHIEF COMPLAINT: Unresponsive. HISTORY OF PRESENT ILLNESS: The patient is a 81-year-old female who has diabetes, insulin requiring. She took her insulin, then she ate lunch, and after that, she became unresponsive according to her . She did not fall. She did not hit her head, but she was minimally responsive. Per her according to EMS, she was not responsive to even painful stimuli. The patient then slowly came around. On arrival here, the patient is alert and answers most questions appropriately, but is very slow to respond. The patient denies any pain. No chest pain. No headache. Accu-Chek per EMS was 208. ALLERGIES: NO KNOWN DRUG ALLERGIES. CURRENT MEDICATIONS: 1. Hydrocodone/acetaminophen 5/325 one every four hours as needed for pain. 2. Metoprolol succinate ER 25 mg one half tablet daily. 3. Ranexa 1000 mg q.12 hours. 4. Brilinta 60 mg b.i.d. 5. Delzicol 400 mg one hour before meals or two hours after a meal. 6. MiraLAX 17 g daily as needed. 7. Senexon 8.6/50 three tablets by mouth at bedtime. 8. Memantine 10 mg twice daily. 9. Duloxetine 60 mg daily. 10. Gabapentin 400 mg b.i.d. and 600 mg daily. 11. Toujeo 57 units subq daily. 12. Prilosec 20 mg daily. 13. Aspirin 81 mg daily. PATIENT'S NAME: [facility] AGE: 81 Y [address] ROOM: [place] [address] LOCATION: GPCU ADMIT DATE: 10/31/2016 ER/Outpatient Report DISCHARGE DATE: FAMILY PHYSICIAN: Kb Littlejohn MD ATTENDING PHYSICIAN: Rosa CORBETT 14. Vitamin D 5000 international units four times a week. 15. Diclofenac gel on left hip four times daily. 16. [place]-3, 500 mg daily. 17. Tylenol 650 mg q.4 hours p.r.n. 18. Preparation H p.r.n. 19. Crestor 40 mg one half tablet daily. 20. Levothyroxine 125 mcg daily. 21. Nystatin powder p.r.n. 22. NovoLog FlexPen 45 units at breakfast, and 45 units at noon and evening meals as needed per sliding scale. 23. Victoza 18 mg/3 mL, inject 1.8 mg subq once daily. MEDICAL PROBLEMS: 1. Coronary artery disease, status post multiple stents and previous CABG. 2. Diabetes mellitus, type 2, insulin requiring. 3. Hypertrophic cardiomyopathy, status post AICD. 4. Third-degree heart block, status post placement of atrial lead and upgrade of AICD to dual chamber in July of 2016. 5. History of recurrent syncope. 6. History of atrial fibrillation in 2011. 7. Constipation. 8. Dementia. 9. Hypothyroidism. 10. Hyperlipidemia. PRIOR SURGERIES: 1. Shoulder surgery. 2. Back surgery. 3. Hysterectomy. 4. Cataract surgery. 5. Appendectomy. 6. ICD placement. 7. CABG. SOCIAL HISTORY: The patient is and lives here in [place]. Tobacco use: None noted. Alcohol use: None noted. FAMILY HISTORY: Brother with diabetes and heart disease. Father with heart disease. Maternal grandmother with stroke. Mother with diabetes, lung cancer, and heart disease. Paternal grandmother with cancer and diabetes. REVIEW OF SYSTEMS: All systems were reviewed and were negative other than what is noted in the PATIENT'S NAME: CHARO DIOR [facility] AGE: 81 Y [address] ROOM: [address] [address] [facility]: 10/31/2016 ER/Outpatient Report DISCHARGE DATE: FAMILY PHYSICIAN: Kb Littlejohn MD ATTENDING PHYSICIAN: Rosa CORBETT HPI. PHYSICAL EXAMINATION: VITAL SIGNS: Weight is 108.9 kg, pulse is 66, respirations are 20, temperature was 97, sats were 97% on 6 L per nasal cannula, and blood pressure was 111/63. GENERAL: A 81-year-old female, in no acute distress. HEENT: Head: Normocephalic and atraumatic. Ears: TMs translucent both ears. Eyes: Pupils were equal and reactive to light and accommodation. Extraocular movements were intact. Nose: Mucosa was pink. No lesions. Mouth: No lesions. Pharynx was benign. NECK: Supple. No lymphadenopathy. LUNGS: Clear to auscultation. No rhonchi, wheezes, or rales. HEART: Regular rate and rhythm. No murmur was noted. ABDOMEN: Protuberant. Bowel sounds were present. Soft and nondistended. No hepatosplenomegaly. No palpable masses. Nontender. SKIN: [place]eman, warm, and dry. No lesions or rashes were noted. NEUROLOGICAL: The patient is alert and slow to respond, but cranial nerves II through XII are grossly intact. Motor strength was 5/5 throughout. Sensation was intact to light touch. EXTREMITIES: No lower extremities edema. No calf tenderness. LABORATORY DATA: Sodium was 139, potassium was 4.6, chloride was 108, CO2 was 23, BUN was 18, and creatinine was 1.4, which has increased from 1.1 on July 23. Blood sugar of 198. Liver enzymes were normal. Magnesium is 2.0. CK-MB was 2.5 and troponin I was less than 0.040. D-dimer is 0.43. Hemoglobin was 13.3, hematocrit was 40.9, platelets were 207, and white count was 8.9, normal differential. INR of 0.94. DIAGNOSTIC STUDIES: EKG: Ventricular paced rhythm of [address] beats per minute[address] Head CT without contrast: Stable with no acute findings per Radiology. One-view chest x-ray: Left-sided AICD pacer was present. No acute process. Pending Radiology over- read. IMPRESSION AND PLAN: 1. Syncopal episode with unresponsiveness, currently resolved. Event of uncertain etiology. The patient has had a history of syncopal episodes. 2. Hypertrophic cardiomyopathy. 3. Hypertension. 4. Diabetes. No evidence of hypoglycemia tonight. 5. Acute kidney injury with creatinine of 1.4, which is up from her previous of 1.1. PATIENT'S NAME: CHARO DIOR [facility] AGE: 81 Y [address] ROOM: [id number] [place], [place] [address] LOCATION: [facility] ADMIT DATE: 10/31/2016 ER/Outpatient Report DISCHARGE DATE: FAMILY PHYSICIAN: Kb Littlejohn MD ATTENDING PHYSICIAN: Rosa CORBETT The patient will be admitted per Dr. Corbett, hospitalist, with Dr. Matta, her information services assistant consulting. Both of the physicians evaluated her in the Emergency Room. The patient was taken to [facility] Tele in stable condition. LOKESH FORD MD CAR/modl /[id number] d: 11/01/16 0206 t: 11/07/16 1003, OUTPATIENT REPORT
--- NOTE | ~2016-10-31 | CON ---
PATIENT'S NAME: CHARO THORNTON [facility] AGE: 81 Y [address] ROOM: [facility] [place], [place] [address] LOCATION: GPCU ADMIT DATE: 10/31/2016 Consultation DISCHARGE DATE: 11/02/2016 FAMILY PHYSICIAN: Kb Littlejohn MD ATTENDING PHYSICIAN: Rosa Corbett DATE OF CONSULTATION: 11/01/2016 REFERRING PHYSICIAN: Cherelle Matta MD The patient was seen on neurologic consultation on November 01, 2016. HISTORY OF PRESENT ILLNESS: Ms. Thornton is well known to myself from [facility]. She is a 81- year-old female patient whom I had been seeing for dementia. The last time I saw the patient was back in June. According to her , she was having difficulty with paranoia as well as delusional thoughts. At that time, she was extremely bothered by depression which had been a chronic issue for her. The patient was started on Namenda and this medication really helped her with her thinking over the course of the past few months. She started being more involved in her daily activity and that her was going to send her to a longterm had simply faded. She was actually admitted to this hospital for evaluation of a recent syncopal event. The patient has a very little remembrance of the event, all that she could remember was she was having a dinner on the day of her admission on 10/31/2016 when she decided to go to the bedroom to lie down, but then she was noticed to be somewhat weak and had to hold onto the partition in her kitchen. saw that she was weak and about to fall and grabbed the chair and stopped her from falling, she never actually ended up on the floor. The patient did not have any seizure activity such as tongue biting or loss of consciousness, but did have a bit of syncopal-related jerking of the limbs which is not odd to have. The patient was never postictal and remembers waking up when EMS arrived only few minutes later. Mental status went back to baseline. Neurology was consulted based upon her history of dementia, but also to rule out any possibility that this event was a seizure versus possibility of syncope. PAST MEDICAL HISTORY: She has extensive medical history including hypertension, dyslipidemia, diabetes, hypothyroidism. She has some coronary artery disease with mild diastolic congestive heart failure issues, paroxysmal atrial fibrillation, history of depression with some paranoid features. She does have some mild dementia. SURGICAL HISTORY: Included shoulder and back surgery, hysterectomy, and appendectomy. She had an ICD placed back in July of 2016 along with a biventricular ICD. She had PATIENT'S NAME: CHARO THORNTON [facility] AGE: 81 Y [address] ROOM: [facility] [place] [place] [address] LOCATION: GPCU ADMIT DATE: 10/31/2016 Consultation DISCHARGE DATE: 11/02/2016 FAMILY PHYSICIAN: Kb Littlejohn MD ATTENDING PHYSICIAN: Rosa Corbett an atrial lead implanted from her ICD in July of 2016 with a single chamber biventricular ICD implantation in 2013. She also had coronary artery bypass grafts in 2003. SOCIAL HISTORY: She is . She lives with her . She denies any alcohol or illicit drug use. FAMILY HISTORY: Consistent with coronary artery disease in mother and father along with diabetes in both parents as well as a brother with diabetes and heart disease. CURRENT MEDICATIONS: Here in the hospital include: 1. Aspirin 81 mg p.o. daily. 2. Namenda 10 mg p.o. b.i.d. 3. Gabapentin 400 mg twice a day and 600 mg at bedtime. 4. Cymbalta 60 mg p.o. daily at bedtime. 5. Vitamin D3 5000 units orally 4 times weekly. 6. Levothyroxine 125 mcg p.o. daily. 7. Metoprolol 25 mg p.o. daily. 8. Omeprazole 20 mg p.o. daily. 9. Ranexa 1000 mg p.o. b.i.d. 10. Crestor 20 mg p.o. at bedtime. 11. Mesalamine 400 mg p.o. daily. 12. Krill oil 500 mg p.o. daily. 13. Brilinta 600 mg p.o. b.i.d. 14. Toujeo 140 units subcutaneously at bedtime. 15. NovoLog sliding scale. 16. Victoza 1.8 mg subcutaneously at bedtime. REVIEW OF SYSTEMS: The patient was seen for dementia and paranoid ideations, but was placed on Namenda back in 2015 and has done very well. She has not had any worsening of her symptoms in fact, was quite good. On physical exam today, she has mild dementia. Coronary artery matson, the patient has extensive coronary history, which may have been associated in someway with the patient having a syncopal event. I believe that she may have had a brief episode of an atrial arrhythmia, perhaps an atrial tachycardia; however, there was no real documented finding here of an atrial arrhythmia. Perhaps, she is getting up from a seated position. The patient likely got lightheaded, but she cannot give me much information beyond this. The rest of review of systems is within normal limits currently. PHYSICAL EXAMINATION: PATIENT'S NAME: CHARO THORNTON [facility] AGE: 81 Y [address] ROOM: [address] [address] LOCATION: GPCU ADMIT DATE: 10/31/2016 Consultation DISCHARGE DATE: 11/02/2016 FAMILY PHYSICIAN: Kb Littlejohn MD ATTENDING PHYSICIAN: Rosa Corbett The patient's speech is clear. She is talkative and conversational. She appears to be in no acute distress. She has a block in her memory about the about the events, but she is able to tell me today's date. She can tell me basic issues on for current events. Serial seven testing was excellent and 5/5 object recall at 5 minutes. There were no paraphasic errors. The patient did not have any evidence of transient delirium episodes. She remained fully cognizant and speech showed no paraphasic errors. VITAL SIGNS: Pulse of 76 and regular, respirations 18, blood pressure 152/67, and temperature is 97.5. NEURO: Cranial nerves 2 through 12 was intact. Motor exam showed normal bulk and tone and power of the upper and lower extremities. Reflexes on motor exam were +2 in the biceps and triceps and patellar reflexes and ankle jerk reflexes were intact and plantar reflexes were normal. There was no . There was no pronator drift. She performed coordination testing of [id number] and rapid alternating hand movements normally. Her gait was normal and narrow based. Negative Romberg. IMPRESSION: Ms. Thornton had an observed period of lightheadedness, caught by her at that time, she did not fall to the floor, but was simply put into a chair, but did pass out. The shaking of her body was clearly not a seizure, but can be associated even with a syncopal event. She was never postictal and regained her consciousness after no more than 5 minutes of being out. The patient is clearly back to her baseline. I am seeing the patient after seeing her back in June and I do think that she is remarkably well. She had issues with severe depressive features such as paranoia thinking that her was going to put her away in a longterm due to her dementia, in all honesty she is doing much better. She is conversational. She does have some gaps in her memory, but she does not have any ideations of anything to suggest paranoid thoughts. She has a good relationship with her and her family. From a standpoint neurologically, I think this was not any neurologic event, but probably vasovagal syncope. Her pacemaker was looked at and there was no evidence of any dysfunction. From a standpoint of recurrence of this event, it is probably low likelihood, as this was a brief event and no recurrence here in the hospital of any lightheadedness was seen. From a standpoint neurologically, the patient is safe for discharge, but I would like to see the patient in general for a followup for her dementia as we were treating her with the Namenda recently started in 2016. MD PRATEEK CASTANON/joni PATIENT'S NAME: CHARO THORNTON [facility] AGE: 81 Y [address] ROOM: [id number] [place] [address] [facility] ADMIT DATE: 10/31/2016 Consultation DISCHARGE DATE: 11/02/2016 FAMILY PHYSICIAN: Kb Littlejohn MD ATTENDING PHYSICIAN: Rosa Corbett /[id number] d: 11/06/16 0027 t: 11/22/16 0823, CONSULTATION REPORT
[2016-10-31 14:14] LABS: BASOPHIL # 0.1 K/uL (0.0-0.2); BASOPHIL % 0.6 %; EOSINOPHIL # 0.3 K/uL (0.0-0.5); EOSINOPHIL % 2.9 %; HEMATOCRIT 40.9 % (33.0-46.0); HEMOGLOBIN 13.3 g/dL (10.0-15.0); IMMATURE GRANULOCYTE # 0.1 K/uL (0.0-0.3); IMMATURE GRANULOCYTE % 0.6 %; LYMPHOCYTE # 1.6 K/uL (0.8-4.0); LYMPHOCYTE % 17.9 %; MCH 31.2 pg (27.0-34.0); MCHC 32.5 gm/dL (32.0-36.5); MONOCYTE # 0.7 K/uL (0.0-1.0); MONOCYTE % 7.6 %; MPV 11.4 fl (9.4-12.4); NEUTROPHIL # (ANC) 6.3 K/uL (1.8-7.8); NEUTROPHIL % 70.4 %; NRBC % 0 /100WBC (0-0.00); PLATELET COUNT 207 K/uL (150-450); RBC 4.26 M/uL (3.50-5.50); RDW-CV 14.4 % (11.9-14.6); WBC 8.9 K/uL (4.0-11.0)
[2016-10-31 14:24] LABS: INR - (THERAPEUTIC) 0.94 (0.92-1.07); PROTIME 9.9 SECONDS (9.8-11.4); PTT 25 SECONDS (25-32)
[2016-10-31 14:34] LABS: ALBUMIN 3.3 gm/dL (3.5-5.0); ALK PHOS 68 IU/L (33-138); ALT 21 IU/L (12-78); ANION GAP 12.6 (10.0-19.0); AST 16 IU/L (10-40); BLOOD UREA NITROGEN 18 mg/dL (6-24); CALCIUM 9.4 mg/dL (8.5-10.5); CHLORIDE 108 mMol/L (96-110); CO2 23 mMol/L (22-32); CREATININE 1.4 mg/dL (0.5-1.1); POTASSIUM 4.6 mMol/L (3.7-5.1); SODIUM 139 mMol/L (135-145); TOTAL BILIRUBIN 0.4 mg/dL (0.0-1.5); TOTAL PROTEIN 6.5 g/dL (6.0-8.4)
[2016-10-31 14:36] LABS: ESTIMATED GFR (MDRD EQUATION) 36
[2016-10-31 14:44] LABS: CPK 141 IU/L (21-215)
--- NOTE | 2016-10-31 19:13 | NUR ---
Patient is 81 yo female admitted from the ER for syncopal episode at noon today. states she was eating lunch and was going to go into the other room. patient states "I never got there." patient denies that she fell, states she thinks she passed out while still sitting at the table. called the ambulance and was brought to ER. saline lock is noted in right forearm without erythema or edema noted at site. patient is slow to answer questions at times. seems unsure of the answers at times as well. education is given as documented. patient denies questions. pneumatics are on bilat calves, pt zack well. states they ahve bothered her in the past though. call light is within reach. denies needs at this time. report is given to NEGIN Dobbins.
--- NOTE | 2016-11-01 05:06 | NUR ---
A/O. FORGETFUL. DENIES DIZZYNESS/LIGHTHEADEDNESS OR SYNCOPE. HR 70-80s PACED. PLAN TO INTERROGATE PACER TODAY. 1A WALKER GB TO BATHROOM. NO BM. ACHS ACCHECKS. 75ML/HR NS. DENIES PAIN. SBP 140-150s. AFEBRILE. ROOM AIR.
[2016-11-01 06:17] LABS: ALBUMIN 3.2 gm/dL (3.5-5.0); ANION GAP 10.6 (10.0-19.0); CALCIUM 9.3 mg/dL (8.5-10.5); CREATININE 1.2 mg/dL (0.5-1.1); POTASSIUM 4.6 mMol/L (3.7-5.1); TOTAL BILIRUBIN 0.4 mg/dL (0.0-1.5); TOTAL PROTEIN 6.3 g/dL (6.0-8.4)
--- NOTE | 2016-11-01 14:39 | NUR ---
Introduced self and role of care management to pt and her . They live in town up at [facility] point and house all one level with a basement. She states no stairs and she is up with her cane and her helps out. I did discuss dc plans and if hhc is needed. They deny and plan home on dc.
[2016-11-01 14:46] LABS: BILIRUBIN URINE NEGATIVE (NEGATIVE); BLOOD URINE 50 /UL (NEGATIVE); GLUCOSE URINE 1000 mg/dL (NEGATIVE); KETONE URINE NEGATIVE (NEGATIVE); LEUKOCYTES URINE NEGATIVE /UL (NEGATIVE); NITRITE URINE NEGATIVE (NEGATIVE); PROTEIN URINE 30 mg/dL (NEGATIVE); UROBILINOGEN URINE NORMAL (NORMAL)
[2016-11-01 14:47] LABS: COLOR URINE YELLOW (YELLOW); TURBIDITY URINE 1+ (CLEAR)
[2016-11-01 15:15] LABS: BACTERIA URINE FEW (NEGATIVE); WBC URINE 0-2 #/HPF (NEGATIVE)
[2016-11-01 15:16] LABS: RBC URINE 20-50 #/HPF (NEGATIVE)
--- NOTE | 2016-11-01 16:51 | NUR ---
Significant Event: A/O. VSS on RA. Denies pain. Up with 1 assist and walker. Both incontinent and continent. UA obtained. Pacer interrogation WNL. EEG results pending. Denies any dizziness. Follow up: cont plan of care
[2016-11-02 03:54] LABS: BASOPHIL # 0.1 K/uL (0.0-0.2); BASOPHIL % 0.6 %; EOSINOPHIL # 0.4 K/uL (0.0-0.5); EOSINOPHIL % 4.4 %; HEMOGLOBIN 13.7 g/dL (10.0-15.0); IMMATURE GRANULOCYTE # 0.1 K/uL (0.0-0.3); IMMATURE GRANULOCYTE % 0.8 %; LYMPHOCYTE # 1.8 K/uL (0.8-4.0); LYMPHOCYTE % 18.3 %; MCH 31.6 pg (27.0-34.0); MCHC 33.4 gm/dL (32.0-36.5); MCV 94.5 fl (83.0-98.0); MONOCYTE # 0.8 K/uL (0.0-1.0); MONOCYTE % 8.6 %; NEUTROPHIL # (ANC) 6.6 K/uL (1.8-7.8); NEUTROPHIL % 67.3 %; NRBC % 0.2 /100WBC (0-0.00); PLATELET COUNT 191 K/uL (150-450); RBC 4.34 M/uL (3.50-5.50); RDW-CV 14.3 % (11.9-14.6); WBC 9.7 K/uL (4.0-11.0)
[2016-11-02 04:05] LABS: ALBUMIN 3.5 gm/dL (3.5-5.0); ANION GAP 11.9 (10.0-19.0); CALCIUM 9.7 mg/dL (8.5-10.5); CREATININE 1.1 mg/dL (0.5-1.1); PHOSPHORUS 2.6 mg/dL (2.5-4.9)
[2016-11-02 04:07] LABS: POTASSIUM 4.9 mMol/L (3.7-5.1)
--- NOTE | 2016-11-02 04:51 | NUR ---
A/O. FORGETFUL. HR 70s. SBP 150-180. HYDRALIZE ORDERED IF NEEDED. AFEBRILE. ROOM AIR. 1A WALKER GB TO BATHROOM. NO BM. DENIES PAIN. NO C/O DIZZYNESS.
--- NOTE | 2016-11-02 15:37 | NUR ---
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 AT TIME OF DC PT IS ALERT AND FAIRLY ORIENTED, IS VERY FORGETFUL MOST OF THE TIME IN THE HOSPITAL. SAYS SHE'S A LITTLE BETTER A HOME. LUNGS CLEAR ABDOMEN SIFT AND NONTENDER WITH ACTIVE BOWL SOUNDS, PULSES STRONG SHE HAS VERY SLIGHT ANKLE AND PEDAL EDEMA. DISMISSAL INSTRUCTIONS, MEDICATIONS, MEDICATION INSTRUCTIONS, PRESCRIPTIONS, FOLLOW UP CARE AND APPOINTMENTS ALL WENT OVER WITH WHO VERBALIZES UNDERSTANDING, PT WAS THERE TOO AND DID LISTEN TO ALL OF THE INSTRUCTIONS. SIGNED THE DISCHARGE PAPERS. W/C TO [facility] [place] [employer] [facility] FOR DC TO HOME.
== END 2016-11-02 14:45 | disposition disaster alternative care site (69) ==
LOC: GMED 13:41 → GPCU 17:42
PROVIDERS: Family Medicine; ADMIT Internal Medicine
DX: R55 Syncope and collapse (principal); I42.1 Obstructive hypertrophic cardiomyopathy; I48.0 Paroxysmal atrial fibrillation; I25.10 Atherosclerotic heart disease of native coronary artery without angina pectoris; I11.0 Hypertensive heart disease with heart failure; I50.32 Chronic diastolic (congestive) heart failure; E11.40 Type 2 diabetes mellitus with diabetic neuropathy, unspecified; E03.9 Hypothyroidism, unspecified; F32.9 Major depressive disorder, single episode, unspecified; F03.90 Unspecified dementia, unspecified severity, without behavioral disturbance, psychotic disturbance, mood disturbance, and anxiety; N17.9 Acute kidney failure, unspecified; E66.01 Morbid (severe) obesity due to excess calories; Z68.39 Body mass index [BMI] 39.0-39.9, adult; Z79.01 Long term (current) use of anticoagulants; Z79.82 Long term (current) use of aspirin; Z79.899 Other long term (current) drug therapy; Z79.4 Long term (current) use of insulin; Z95.810 Presence of automatic (implantable) cardiac defibrillator; Z90.710 Acquired absence of both cervix and uterus; Z90.49 Acquired absence of other specified parts of digestive tract; Z98.49 Cataract extraction status, unspecified eye; Z98.890 Other specified postprocedural states
CPT/HCPCS: G0378; G0379; G8978; G8979; G8980; G8987; G8988; G8989; J0360; J1644; J7030

== ENCOUNTER → 2016-10-31 | Outpatient (CLI) | payer MEDICARE, BC | END | disposition disaster alternative care site (69) | LOC: GAMB 13:11 | DX: R41.82 Altered mental status, unspecified (principal); I70.90 Unspecified atherosclerosis; K59.00 Constipation, unspecified; F03.90 Unspecified dementia, unspecified severity, without behavioral disturbance, psychotic disturbance, mood disturbance, and anxiety; E11.9 Type 2 diabetes mellitus without complications; E78.5 Hyperlipidemia, unspecified; E03.9 Hypothyroidism, unspecified; R55 Syncope and collapse; Z79.82 Long term (current) use of aspirin; Z79.891 Long term (current) use of opiate analgesic; Z79.1 Long term (current) use of non-steroidal anti-inflammatories (NSAID); Z79.899 Other long term (current) drug therapy | CPT/HCPCS: A0422; A0425; A0427 ==